=== PATIENT | female | born 1990 | race Caucasian/White ===

== ENCOUNTER 2018-01-06 00:15 | Emergency (ER) | payer SELFPAY ==
[2018-01-06] MEDS ORDERED: Amoxicillin/Clavulanate K 875-125 MG Tab PO ONE (00:29)
--- NOTE | 2018-01-06 00:29 | EDM.PDOC ---
ED HPI GENERAL MEDICAL PROBLEM - General Stated Complaint: TOOTHACHE Time Seen by Provider: 01/06/18 00:15 Source of Information: Reports: Patient History Limitations: Reports: No Limitations - History of Present Illness INITIAL COMMENTS - FREE TEXT/NARRATIVE: 27 y.o.w.f -smoker-came to the ed due to toothache in the past 3-5 days. She took motrin without helping her pain. She did not have time to go to a dentist yet. No N/V/D or any other acute medical issues. BP 133/74 Pulse 69 RR 16 Temp 98.7 Pulse ox 99% on RA Onset Date: 01/02/18 Onset Time: 09:00 Duration: Day(s):, Intermittent Location: Reports: Face Quality: Reports: Ache, Burning, Dull Severity: Moderate Improves with: Reports: Medication Worsens with: Reports: Movement Context: Reports: Other (poor dentition) Associated Symptoms: Reports: No Other Symptoms Treatments [employer]CTOR: Reports: NSAIDS - Related Data Home Meds: Home Meds Amoxicillin/Potassium Clav [Augmentin 875-125 Tablet] 1 each PO BID #20 tablet 01/06/18 [Rx] traMADol [Ultram] 50 mg PO Q4H PRN #10 tab 01/06/18 [Rx] ED ROS ENT - Review of Systems Review Of Systems: See Below Constitutional: Reports: No Symptoms HEENT: Reports: Dental Pain Respiratory: Reports: No Symptoms Cardiovascular: Reports: No Symptoms Endocrine: Reports: No Symptoms GI/Abdominal: Reports: No Symptoms : Reports: No Symptoms Musculoskeletal: Reports: No Symptoms Skin: Reports: No Symptoms Neurological: Reports: No Symptoms Psychiatric: Reports: No Symptoms Hematologic/Lymphatic: Reports: No Symptoms Immunologic: Reports: No Symptoms ED EXAM, ENT - Physical Exam Exam: See Below Exam Limited By: No Limitations General Appearance: Alert, WD/WN, Mild Distress, Obese Eye Exam: Bilateral Eye: Normal Inspection Ears: Normal External Exam, Hearing Grossly Normal, Normal TMs Nose: Normal Inspection, Normal Mucousa, No Blood Mouth/Throat: Normal Lips, Normal Oropharynx, Dental Pain, Dental Tenderness, Dental Trauma Head: Atraumatic, Normocephalic Neck: Normal Inspection, Supple, Non-Tender, Full Range of Motion Respiratory/Chest: No Respiratory Distress, Lungs Clear, Normal Breath Sounds, Chest Non-Tender Cardiovascular: Normal Peripheral Pulses, Regular Rate, Rhythm, No Edema, No Gallop, No JVD, No Murmur GI/Abdominal: Normal Bowel Sounds, Soft, Non-Tender, No Organomegaly, No Distention, No Abnormal Bruit, No Mass, Pelvis Stable (Female) Exam: Deferred Rectal (Female) Exam: Deferred Back: Normal Inspection, Full Range of Motion Extremities: Normal Inspection, Normal Range of Motion, Non-Tender, No Pedal Edema, Normal Capillary Refill Neurological: Alert, Oriented, CN II-XII Intact, Normal Cognition, Normal Gait, No Motor/Sensory Deficits Psychiatric: Normal Affect, Normal Mood Skin: Warm, Dry, Intact, Normal Color, No Rash Lymphatic: No Adenopathy Course - Vital Signs Text/Narrative:: 27 y.o.w.f -smoker-came to the ed due to toothache in the past 3-5 days. She took motrin without helping her pain. She did not have time to go to a dentist yet. No N/V/D or any other acute medical issues. BP 133/74 Pulse 69 RR 16 Temp 98.7 Pulse ox 99% on RA PE: 27 y.o.w.f with poor dentition, gingivitis Impression: Gingivitis, Tooth decay/poor dentition Tx: Augementin/Ultram Reexam: Improved Plan: FD/C with instructions - Orders/Labs/Meds Meds: Medications Discontinued Medications Generic Name Dose Route Start Last Admin Trade Name Rudyq PRN Reason Stop Dose Admin Amoxicillin/Clavulanate Potassium 1 tab 01/06/18 00:29 01/06/18 00:51 Augmentin 875 Mg/125 Mg PO 01/06/18 00:30 1 tab ONETIME ONE Administration Tramadol HCl 100 mg 01/06/18 00:30 01/06/18 00:51 Ultram PO 01/06/18 00:31 100 mg ONETIME ONE Administration Tramadol HCl Confirm 01/06/18 00:52 Ultram Administered 01/06/18 00:53 Dose 50 mg .ROUTE .STK-MED ONE Departure - Departure Time of Disposition: 00:31 Disposition: Home, Self-Care 01 Condition: Good Clinical Impression: Tooth decay, Gingivitis, Poor dentition - Discharge Information Prescriptions: Amoxicillin/Potassium Clav [Augmentin 875-125 Tablet] 1 each PO BID #20 tablet traMADol [Ultram] 50 mg PO Q4H PRN #10 tab PRN Reason: for severe pain only Instructions: Amoxicillin; Clavulanic Acid tablets, Tramadol tablets Referrals: PCP,None [Primary Care Provider] - Additional Instructions: Please quit tobacco use, please cont Motrin, please take Augmentin and ultram as recommended, please f/u with a dentist A.S.A[facility] Please come back if your symptoms get worse acutely.
[2018-01-06] MEDS ORDERED: traMADol 50 MG Tab PO ONE (00:30)
[2018-01-06] MEDS ORDERED: traMADol 50 MG Tab ONE (00:52)
== END 2018-01-06 01:06 | disposition home or self-care (01) ==
LOC: FB.ED 00:15
DX: K05.10 Chronic gingivitis, plaque induced (principal); K02.9 Dental caries, unspecified; Z87.891 Personal history of nicotine dependence
CPT/HCPCS: 99282; A9270